=== PATIENT | male | born 1950 | race Hispanic/Latino ===

== ENCOUNTER 2021-03-08 13:51 | Emergency (ER) | payer MEDICARE ==
--- NOTE | 2021-03-08 14:05 | Emergency Department Report ---
ED CPR HPI - General Chief Complaint: Cardiac Arrest/CPR Stated Complaint: CARDIAC ARREST Time Seen by Provider: 03/08/21 14:04 Source: family, EMS (Verbal report received from emergency medical services. EMS documentation not available at time of chart dictation ), RN notes reviewed Mode of arrival: Stretcher Limitations: Altered Mental Status, Physical Limitation - History of Present Illness Initial Comments: The patient is a 70-year-old gentleman. The patient is brought to the hospital hospital as an out of hospital cardiac arrest. The patient arrives intubated, receiving CPR, with a GCS of 3. As per verbal report from emergency medical services, the patient has a history of AAA, and prostate cancer. Reportedly, the patient was in a car, and began to have abdominal pain, and then became unresponsive. EMS reports the patient initially was bradycardic, with a heart rate to the 50s. EMS started dopamine in the field. They then report the patient developed asystole. EMS reports to myself the patient is pulseless for 10 to 12 minutes in the field. Upon arrival to this emergency room, patient has a GCS of 3, is receiving active CPR, and pupils are midpoint, and do not react to light. Patient receives aggressive chest compressions, aggressive CPR, and standard ACLS medications, including multiple defibrillations. He had a prolonged resuscitation in the emergency room. Unfortunately, pulses are not obtainable. Cardiac bedside [id number] ultrasound demonstrates cardiac standstill, and no coordinated ventricular activity. No pulses are felt on examination, or through Doppler interrogation of the femoral artery. Resuscitation efforts were subsequently terminated. His family is also subsequently informed. MD Complaint: stopped breathing -: minute(s) Place: other (Patient was in the car) Initial Findings in the Field: other rhythm (Bradycardia, developing PEA) Treatments Prior to Arrival: intubation, chest compressions ED Review of Systems ROS: Stated complaint: CARDIAC ARREST Other details as noted in HPI Comment: Unobtainable due to pts medical conditions ED Physical Exam - General Limitations: Altered Mental Status, Physical Limitation General appearance: obtunded - Head Head exam: Present: atraumatic, normocephalic - Eye Eye exam: Present: normal appearance, other (Pupils midpoint and do not react to light) - ENT ENT exam: Present: normal exam, normal orophraynx, mucous membranes moist, other (Endotracheal tube noted in the oropharynx) - Neck Neck exam: Present: normal inspection - Respiratory Respiratory exam: Present: other (No breath sounds without [id number] ventilation) - Cardiovascular Cardiovascular Exam: Present: other (The patient is pulseless) - GI/Abdominal GI/Abdominal exam: Present: soft - Rectal Rectal exam: Present: deferred - Extremities Exam Extremities exam: Present: normal inspection - Back Exam Back exam: Present: normal inspection - Neurological Exam Neurological exam: Present: altered (Nonverbal, GCS of 3) - Skin Skin exam: Present: warm, dry, intact, normal color. Absent: rash ED Course Vital Signs 03/08/21 03/08/21 13:51 14:03 Pulse Rate 0 L Respiratory 0 L Rate O2 Sat by Pulse 100 0 L Oximetry ED Medical Decision Making - Medical Decision Making Differential diagnosis, including but not limited to: AAA, pulmonary embolism, acute coronary syndrome, dissection Critical care attestation.: If time is entered above; I have spent that time in minutes in the direct care of this critically ill patient, excluding procedure time. ED Disposition Clinical Impression: Cardiac arrest Disposition: 20 Is pt being admited?: No Does the pt Need Aspirin: No Condition: Undetermined Referrals: PRIMARY CARE, [Primary Care Provider] - 3-5 Days
[2021-03-08] MEDS ORDERED: CALCIUM CHLORIDE 1,000 MG/10 ML SYRINGE IV ONE (21:00)
[2021-03-08] MEDS ORDERED: EPINEPHrine 1 MG/10 ML SYRINGE ONE (21:00)
[2021-03-08] MEDS ORDERED: SODIUM BICARB 8.4% 50 MEQ/50 ML SYRINGE IV ONE (21:00)
[2021-03-08] MEDS ORDERED: DEXTROSE 50% IN WATER (25GM) 50 ML VIAL IV ONE (21:00)
[2021-03-08] MEDS ORDERED: MAGNESIUM SULFATE 1 GM/2ML (4 MEQ/1ML) INJ ONE (21:00)
== END 2021-03-08 15:00 ==
LOC: ED 13:51
DX: I46.9 Cardiac arrest, cause unspecified (principal)
CPT/HCPCS: 92950; 99285; J0171; J3475